=== PATIENT | female | born 1940 | race African-American/Black ===

== ENCOUNTER 2022-09-22 18:40 | Observation (INO) | payer OTHER ==
[2022-09-22 20:03] LABS: HEMATOCRIT 34.4 % (32.4-45.2); MCH 26.9 pg (25.7-33.7); MEAN PLT VOLUME 9.9 fl (7.5-11.1); PLATELET COUNT 208.1 10^3/uL (134-434); RBC 4.09 10^6/uL (3.60-5.2); RDW 18.6 % (11.6-15.6); WHITE BLOOD COUNT 5.2 10^3/uL (4.0-10.8)
[2022-09-22 20:43] LABS: ALBUMIN 3.4 g/dl (3.4-5.0); BILIRUBIN,TOTAL 0.4 mg/dl (0.2-1); CALCIUM 9.4 mg/dl (8.5-10)
[2022-09-22] MEDS ORDERED: ASPIRIN 81 MG CHEWABLE TABLETS PO ONE (20:44)
[2022-09-22] MEDS ORDERED: ASPIRIN 81 MG CHEWABLE TABLETS ONE (20:47)
[2022-09-22 21:23] LABS: PLATELET ESTIMATE ADEQUATE
[2022-09-22] MEDS ORDERED: DOCUSATE SODIUM 100 MG CAPSULE (FP) PO PRN (22:18)
[2022-09-22] MEDS ORDERED: ACETAMINOPHEN 325 MG TABLET (FP) PO PRN (22:18)
[2022-09-22] MEDS ORDERED: CEFTRIAXONE 1 GM in DEXTROSE 5%-WATER - 50 ML IVPB SCH (23:46)
[2022-09-23] MEDS ORDERED: FUROSEMIDE 40 MG/4 ML INJECTABLE VIAL IVPUSH ONE (06:00)
[2022-09-23] MEDS: INSULIN SLIDING SCALE (NOVOLOG) 1 VIAL SQ SCH ×4 (07:16→23:13)
[2022-09-23 08:29] LABS: INR 1.4 (0.83-1.09); PROTHROMBIN TIME (PATIENT) 16.1 SEC (9.7-13.0)
[2022-09-23 08:31] LABS: ACTIVATED PTT 33.4 SECONDS (25.2-36.5)
[2022-09-23 08:37] LABS: CALCIUM 9.3 mg/dl (8.5-10); PHOSPHOROUS 3.2 mg/dl (2.5-4.9)
[2022-09-23] MEDS ORDERED: REMDESIVIR 200 MG in SODIUM CHLORIDE 250 ML IVPB ONE (09:00)
[2022-09-23] MEDS: FAMOTIDINE 20 MG TABLET PO SCH (09:42)
[2022-09-23] MEDS: ASPIRIN 81 MG CHEWABLE TABLETS PO SCH (09:42)
[2022-09-23] MEDS: CARVEDILOL PHOSPHATE CR 40 MG CAPSULE (FP) PO SCH (09:42)
[2022-09-23] MEDS: CLOPIDOGREL BISULFATE 75 MG TABLET (FP) PO SCH (09:42)
[2022-09-23] MEDS: LOSARTAN POTASSIUM 50 MG TABLET PO SCH (09:42)
[2022-09-23] MEDS ORDERED: guaiFENesin/D-M SUGAR-FREE/ACLHOL-FREE (200 MG/10 MG) 5 ML PO PRN (10:11)
[2022-09-23 11:38] LABS: BASO % 0.4 % (0-2.0); EOS % 4.4 % (0-4.5); HEMATOCRIT 31.4 % (32.4-45.2); HEMOGLOBIN 10.2 GM/dL (10.7-15.3); MCH 26.9 pg (25.7-33.7); MCHC 32.5 g/dl (32.0-36.0); MEAN CELL VOLUME 82.9 fl (80-96); MEAN PLT VOLUME 9.5 fl (7.5-11.1); MONO % 8.7 % (3.8-10.2); NEUT % 46.5 % (42.8-82.8); PLATELET COUNT 172 10^3/uL (134-434); RBC 3.79 M/mm3 (3.60-5.2); RDW 18.3 % (11.6-15.6)
[2022-09-23] MEDS: ENOXAPARIN NA (PORCINE) 40 MG/0.4 ML DISP.SYRIN SQ SCH (12:31)
[2022-09-23 21:22] VITALS: BMI 24.2
[2022-09-23] MEDS: ATORVASTATIN CA 40 MG TABLET (FP) PO SCH (22:35)
[2022-09-24 08:52] LABS: BILIRUBIN,TOTAL 0.6 mg/dl (0.2-1); CALCIUM 9.1 mg/dl (8.5-10); CREATININE 0.9 mg/dl (0.55-1.3); MAGNESIUM 1.8 mg/dL (1.8-2.4); PHOSPHOROUS 3.2 mg/dl (2.5-4.9); TOT PROT 6.2 g/dl (6.4-8.2)
[2022-09-24] MEDS: INSULIN SLIDING SCALE (NOVOLOG) 1 VIAL SQ SCH ×3 (09:51→22:01)
[2022-09-24] MEDS: ENOXAPARIN NA (PORCINE) 40 MG/0.4 ML DISP.SYRIN SQ SCH (10:03)
[2022-09-24] MEDS: REMDESIVIR 100 MG in SODIUM CHLORIDE 250 ML IVPB SCH (10:05)
[2022-09-24] MEDS: CARVEDILOL PHOSPHATE CR 40 MG CAPSULE (FP) PO SCH (10:07)
[2022-09-24] MEDS: CLOPIDOGREL BISULFATE 75 MG TABLET (FP) PO SCH (10:08)
[2022-09-24] MEDS: LOSARTAN POTASSIUM 50 MG TABLET PO SCH (10:08)
[2022-09-24] MEDS: ASPIRIN 81 MG CHEWABLE TABLETS PO SCH (10:08)
[2022-09-24 11:48] LABS: BASO % 0.5 % (0-2.0); EOS % 3.6 % (0-4.5); HEMATOCRIT 33.2 % (32.4-45.2); LYMPH % 40.1 % (8-40); MCH 27.3 pg (25.7-33.7); MCHC 33.2 g/dl (32.0-36.0); MEAN CELL VOLUME 82.1 fl (80-96); MEAN PLT VOLUME 10.1 fl (7.5-11.1); MONO % 10.2 % (3.8-10.2); NEUT % 45.6 % (42.8-82.8); PLATELET COUNT 177 10^3/uL (134-434); RBC 4.05 M/mm3 (3.60-5.2); RDW 17.9 % (11.6-15.6); WHITE BLOOD COUNT 4.3 K/mm3 (4.0-10.0)
[2022-09-24] MEDS ORDERED: FUROSEMIDE 40 MG/4 ML INJECTABLE VIAL IVPUSH ONE (17:50)
[2022-09-24 20:26] LABS: ALBUMIN 3.4 g/dl (3.4-5.0); BILIRUBIN,DIRECT 0.1 mg/dL (0.0-0.2); BILIRUBIN,TOTAL 0.6 mg/dl (0.2-1); TOT PROT 6.8 g/dl (6.4-8.2)
[2022-09-24] MEDS: ATORVASTATIN CA 40 MG TABLET (FP) PO SCH (22:00)
[2022-09-25] MEDS: INSULIN SLIDING SCALE (NOVOLOG) 1 VIAL SQ SCH ×2 (06:46→11:05)
[2022-09-25] MEDS: FAMOTIDINE 20 MG TABLET PO SCH ×2 (07:00→10:57)
[2022-09-25 09:10] LABS: BILIRUBIN,TOTAL 0.7 mg/dl (0.2-1); MAGNESIUM 1.8 mg/dL (1.8-2.4); PHOSPHOROUS 3.5 mg/dl (2.5-4.9); TOT PROT 6.3 g/dl (6.4-8.2)
[2022-09-25 09:36] LABS: BASO % 0.5 % (0-2.0); EOS % 3.9 % (0-4.5); HEMATOCRIT 31.5 % (32.4-45.2); HEMOGLOBIN 10.6 GM/dL (10.7-15.3); MCH 27.5 pg (25.7-33.7); MCHC 33.8 g/dl (32.0-36.0); MEAN CELL VOLUME 81.5 fl (80-96); MEAN PLT VOLUME 9.2 fl (7.5-11.1); NEUT % 49.6 % (42.8-82.8); PLATELET COUNT 172 10^3/uL (134-434); RBC 3.86 M/mm3 (3.60-5.2); RDW 17.9 % (11.6-15.6); WHITE BLOOD COUNT 4.3 K/mm3 (4.0-10.0)
[2022-09-25] MEDS: CARVEDILOL PHOSPHATE CR 40 MG CAPSULE (FP) PO SCH (10:57)
[2022-09-25] MEDS: LOSARTAN POTASSIUM 50 MG TABLET PO SCH (10:57)
[2022-09-25] MEDS: ASPIRIN 81 MG CHEWABLE TABLETS PO SCH (10:57)
[2022-09-25] MEDS: CLOPIDOGREL BISULFATE 75 MG TABLET (FP) PO SCH (10:57)
[2022-09-25] MEDS: ENOXAPARIN NA (PORCINE) 40 MG/0.4 ML DISP.SYRIN SQ SCH (10:57)
[2022-09-25] MEDS: REMDESIVIR 100 MG in SODIUM CHLORIDE 250 ML IVPB SCH (10:58)
[2022-09-25 12:07] VITALS: TEMP 98.6
[2022-09-25 14:10] VITALS: BP 157/59; PULSE 66; RESP 19
== END 2022-09-25 14:33 | disposition home or self-care (01) ==
LOC: FER 18:40 → FM/S 21:55 → INTOOBSV 21:55
PROVIDERS: ADMIT Internal Medicine; ATTEND Internal Medicine
PROC: 3E023GC Introduction of Other Therapeutic Substance into Muscle, Percutaneous Approach (ICD-10-PCS; principal; 2022-09-22)
PROC: 3E033GC Introduction of Other Therapeutic Substance into Peripheral Vein, Percutaneous Approach (ICD-10-PCS; 2022-09-22)
PROC: 3E033GC Introduction of Other Therapeutic Substance into Peripheral Vein, Percutaneous Approach (ICD-10-PCS; 2022-09-22)
DX: I25.10 Atherosclerotic heart disease of native coronary artery without angina pectoris (principal); I11.0 Hypertensive heart disease with heart failure; I50.9 Heart failure, unspecified; E11.9 Type 2 diabetes mellitus without complications; Z95.1 Presence of aortocoronary bypass graft; Z95.5 Presence of coronary angioplasty implant and graft; R77.8 Other specified abnormalities of plasma proteins; R79.89 Other specified abnormal findings of blood chemistry; U07.1 COVID-19; Z88.8 Allergy status to other drugs, medicaments and biological substances
CPT/HCPCS: 0241U-QW; 36415; 71045-TC-FY; 80048; 80053; 80076; 82550; 82553; 82962; 83735; 83880; 84100; 84443; 84484; 85025; 85027; 85610; 85730; 93005; 93306-TC; 96365; 96366; 96372; 96375; 96376; 97116-GP; 97162-GP; 99285-25; C9399; G0378

== ENCOUNTER 2022-10-10 14:58 | Inpatient (IN) | payer OTHER ==
[2022-10-10 16:54] LABS: ALBUMIN 3.1 g/dl (3.4-5.0); BILIRUBIN,TOTAL 1.2 mg/dl (0.2-1); CALCIUM 9.5 mg/dl (8.5-10); TOT PROT 6.6 g/dl (6.4-8.2)
[2022-10-10 17:47] LABS: HEMATOCRIT 32.2 % (32.4-45.2); HEMOGLOBIN 10.6 GM/dL (10.7-15.3); MCH 26.6 pg (25.7-33.7); MCHC 32.9 g/dl (32.0-36.0); MEAN CELL VOLUME 80.6 fl (80-96); PLATELET COUNT 148 10^3/uL (134-434); RBC 3.99 M/mm3 (3.60-5.2); WHITE BLOOD COUNT 5.7 K/mm3 (4.0-10.0)
[2022-10-11] MEDS ORDERED: FUROSEMIDE 40 MG/4 ML INJECTABLE VIAL IVPUSH ONE (05:04)
[2022-10-11] MEDS: ASPIRIN 81 MG CHEWABLE TABLETS PO SCH (09:59)
[2022-10-11] MEDS: CLOPIDOGREL BISULFATE 75 MG TABLET (FP) PO SCH (09:59)
[2022-10-11] MEDS: ENOXAPARIN NA (PORCINE) 40 MG/0.4 ML DISP.SYRIN SQ SCH (09:59)
[2022-10-11] MEDS ORDERED: CARVEDILOL PHOSPHATE CR 40 MG CAPSULE (FP) PO SCH (10:00)
[2022-10-11] MEDS ORDERED: LOSARTAN POTASSIUM 50 MG TABLET PO SCH (10:00)
[2022-10-11] MEDS ORDERED: FAMOTIDINE 20 MG TABLET PO SCH (10:00)
[2022-10-11 10:40] LABS: BASO % 0.3 % (0-2.0); EOS % 0.7 % (0-4.5); HEMATOCRIT 34.7 % (32.4-45.2); HEMOGLOBIN 11.9 GM/dL (10.7-15.3); LYMPH % 22.7 % (8-40); MCH 27.6 pg (25.7-33.7); MCHC 34.2 g/dl (32.0-36.0); MEAN CELL VOLUME 80.6 fl (80-96); MONO % 6.6 % (3.8-10.2); NEUT % 69.7 % (42.8-82.8); PLATELET COUNT 150 10^3/uL (134-434); RDW 18.1 % (11.6-15.6); WHITE BLOOD COUNT 5.7 K/mm3 (4.0-10.0)
[2022-10-11 10:59] LABS: BLOOD UREA NITROGEN 22.3 mg/dL (7-18); MAGNESIUM 1.8 mg/dL (1.8-2.4)
[2022-10-11 11:00] LABS: ALBUMIN 3.1 g/dl (3.4-5.0); CALCIUM 9.6 mg/dL (8.5-10.1)
[2022-10-11 11:02] LABS: PHOSPHOROUS 3.9 mg/dL (2.5-4.9)
[2022-10-11 11:03] LABS: CREATININE 1.3 mg/dL (0.55-1.3)
[2022-10-11 11:04] LABS: TOT PROT 7.1 g/dl (6.4-8.2)
[2022-10-11] MEDS: INSULIN SLIDING SCALE (NOVOLOG) 1 VIAL SQ SCH ×3 (11:13→22:04)
[2022-10-11 11:15] LABS: BILIRUBIN,TOTAL 1.4 mg/dL (0.2-1)
[2022-10-11 13:11] LABS: N-TERMINAL BNP 15952.3 pg/ml (5-450)
[2022-10-11] MEDS ORDERED: FUROSEMIDE 40 MG/4 ML INJECTABLE VIAL IVPUSH SCH (14:00)
[2022-10-11] MEDS ORDERED: CARVEDILOL 25 MG TABLET (FP) PO ONE (16:34)
[2022-10-11] MEDS ORDERED: SODIUM CHLORIDE 1,000 ML IV SCH (17:00)
[2022-10-11 20:28] LABS: BASO % 0.3 % (0-2.0); EOS % 3.5 % (0-4.5); HEMATOCRIT 32.3 % (32.4-45.2); HEMOGLOBIN 10.9 GM/dL (10.7-15.3); LYMPH % 27.1 % (8-40); MCH 26.9 pg (25.7-33.7); MCHC 33.6 g/dl (32.0-36.0); MEAN CELL VOLUME 79.9 fl (80-96); MEAN PLT VOLUME 9.6 fl (7.5-11.1); MONO % 6.4 % (3.8-10.2); NEUT % 62.7 % (42.8-82.8); PLATELET COUNT 150 10^3/uL (134-434); RBC 4.04 M/mm3 (3.60-5.2); RDW 18.2 % (11.6-15.6); WHITE BLOOD COUNT 5.7 K/mm3 (4.0-10.0)
[2022-10-11 20:36] LABS: INR 1.45 (0.83-1.09); PROTHROMBIN TIME (PATIENT) 16.8 SEC (9.7-13.0)
[2022-10-11 20:39] LABS: ACTIVATED PTT 34.1 SECONDS (25.2-36.5)
[2022-10-11] MEDS: ATORVASTATIN CA 40 MG TABLET (FP) PO SCH (21:49)
[2022-10-11] MEDS: CARVEDILOL 25 MG TABLET (FP) PO SCH (21:51)
[2022-10-11] MEDS ORDERED: INSULIN (LEVEMIR) 100 UNITS/ML UNITS SQ SCH (22:00)
[2022-10-11] MEDS ORDERED: INSULIN (NOVOLOG) ASPART 100 UNITS/ML 10ML VIAL ONE (22:03)
[2022-10-12] MEDS ORDERED: DEXTROSE 50%-WATER 25 GM/50 ML DISP.SYRIN ONE (04:03)
[2022-10-12] MEDS ORDERED: DEXTROSE 50%-WATER 25 GM/50 ML DISP.SYRIN IVPUSH ONE (04:15)
[2022-10-12] MEDS: INSULIN SLIDING SCALE (NOVOLOG) 1 VIAL SQ SCH ×4 (06:23→21:26)
[2022-10-12 07:22] LABS: BASO % 0.2 % (0-2.0); EOS % 1.8 % (0-4.5); HEMATOCRIT 33.7 % (32.4-45.2); HEMOGLOBIN 11.3 GM/dL (10.7-15.3); LYMPH % 18.4 % (8-40); MCHC 33.4 g/dl (32.0-36.0); MEAN CELL VOLUME 80.8 fl (80-96); MEAN PLT VOLUME 10.6 fl (7.5-11.1); MONO % 7.1 % (3.8-10.2); NEUT % 72.5 % (42.8-82.8); PLATELET COUNT 147 10^3/uL (134-434); RBC 4.18 M/mm3 (3.60-5.2); RDW 17.8 % (11.6-15.6); WHITE BLOOD COUNT 5.1 K/mm3 (4.0-10.0)
[2022-10-12 07:47] LABS: CALCIUM 9.6 mg/dL (8.5-10.1)
[2022-10-12 07:48] LABS: ALBUMIN 2.7 g/dl (3.4-5.0); BLOOD UREA NITROGEN 25.6 mg/dL (7-18)
[2022-10-12 07:51] LABS: CREATININE 1.2 mg/dL (0.55-1.3)
[2022-10-12 07:53] LABS: BILIRUBIN,TOTAL 0.9 mg/dL (0.2-1); TOT PROT 6.4 g/dl (6.4-8.2)
[2022-10-12] MEDS ORDERED: CARVEDILOL PHOSPHATE CR 40 MG CAPSULE (FP) PO SCH (10:00)
[2022-10-12] MEDS ORDERED: ASCORBIC ACID 500 MG TABLET (FP) PO SCH (10:00)
[2022-10-12] MEDS: LOSARTAN POTASSIUM 50 MG TABLET PO SCH (10:56)
[2022-10-12] MEDS: ASPIRIN 81 MG CHEWABLE TABLETS PO SCH (10:57)
[2022-10-12] MEDS: CLOPIDOGREL BISULFATE 75 MG TABLET (FP) PO SCH (10:57)
[2022-10-12] MEDS: CARVEDILOL 25 MG TABLET (FP) PO SCH ×2 (10:57→21:19)
[2022-10-12] MEDS: FUROSEMIDE 40 MG/4 ML INJECTABLE VIAL IVPUSH SCH (10:57)
[2022-10-12] MEDS: ENOXAPARIN NA (PORCINE) 40 MG/0.4 ML DISP.SYRIN SQ SCH (10:57)
[2022-10-12] MEDS: PANTOPRAZOLE 40 MG TABLET PO SCH (10:57)
[2022-10-12] MEDS ORDERED: INSULIN (NOVOLOG) ASPART 100 UNITS/ML 10ML VIAL ONE (17:11)
[2022-10-12] MEDS: ATORVASTATIN CA 40 MG TABLET (FP) PO SCH (21:19)
[2022-10-13] MEDS: INSULIN SLIDING SCALE (NOVOLOG) 1 VIAL SQ SCH ×4 (06:56→22:18)
[2022-10-13 07:59] LABS: HEMATOCRIT 32.4 % (32.4-45.2); HEMOGLOBIN 10.7 GM/dL (10.7-15.3); MCH 26.9 pg (25.7-33.7); MCHC 33.1 g/dl (32.0-36.0); MEAN CELL VOLUME 81.2 fl (80-96); MEAN PLT VOLUME 10.9 fl (7.5-11.1); PLATELET COUNT 151 10^3/uL (134-434); RBC 3.99 M/mm3 (3.60-5.2); RDW 17.9 % (11.6-15.6); WHITE BLOOD COUNT 5.3 K/mm3 (4.0-10.0)
[2022-10-13 08:54] LABS: ALBUMIN 2.6 g/dl (3.4-5.0); BLOOD UREA NITROGEN 26.8 mg/dL (7-18); CALCIUM 9.4 mg/dL (8.5-10.1)
[2022-10-13 08:55] LABS: MAGNESIUM 1.9 mg/dL (1.8-2.4)
[2022-10-13 08:57] LABS: PHOSPHOROUS 3.2 mg/dL (2.5-4.9)
[2022-10-13 08:58] LABS: CREATININE 1.1 mg/dL (0.55-1.3)
[2022-10-13 08:59] LABS: BILIRUBIN,TOTAL 0.8 mg/dL (0.2-1); TOT PROT 6.3 g/dl (6.4-8.2)
[2022-10-13 09:03] LABS: CHOLESTEROL 85 mg/dL (50-200)
[2022-10-13 09:04] LABS: LDL CHOLESTEROL (ONLY SJRH) 48 mg/dL (5-100)
[2022-10-13 09:07] LABS: HDL CHOLESTEROL 32 mg/dL (40-60)
[2022-10-13] MEDS: ENOXAPARIN NA (PORCINE) 40 MG/0.4 ML DISP.SYRIN SQ SCH (09:55)
[2022-10-13] MEDS: CARVEDILOL 25 MG TABLET (FP) PO SCH ×2 (09:55→22:18)
[2022-10-13] MEDS: CLOPIDOGREL BISULFATE 75 MG TABLET (FP) PO SCH (09:55)
[2022-10-13] MEDS: ASPIRIN 81 MG CHEWABLE TABLETS PO SCH (09:55)
[2022-10-13] MEDS: FUROSEMIDE 40 MG/4 ML INJECTABLE VIAL IVPUSH SCH (09:55)
[2022-10-13] MEDS: LOSARTAN POTASSIUM 50 MG TABLET PO SCH (09:55)
[2022-10-13] MEDS: PANTOPRAZOLE 40 MG TABLET PO SCH (09:55)
[2022-10-13] MEDS ORDERED: INSULIN (NOVOLOG) ASPART 100 UNITS/ML 10ML VIAL ONE ×3 (13:01→22:15)
[2022-10-13] MEDS: ATORVASTATIN CA 40 MG TABLET (FP) PO SCH (22:18)
[2022-10-14] MEDS: INSULIN SLIDING SCALE (NOVOLOG) 1 VIAL SQ SCH ×4 (06:45→21:26)
[2022-10-14 08:26] LABS: HEMATOCRIT 31.9 % (32.4-45.2); HEMOGLOBIN 10.7 GM/dL (10.7-15.3); MCH 27.2 pg (25.7-33.7); MCHC 33.5 g/dl (32.0-36.0); MEAN CELL VOLUME 81.2 fl (80-96); MEAN PLT VOLUME 10.6 fl (7.5-11.1); PLATELET COUNT 160 10^3/uL (134-434); RBC 3.92 M/mm3 (3.60-5.2); RDW 17.6 % (11.6-15.6); WHITE BLOOD COUNT 4.6 K/mm3 (4.0-10.0)
[2022-10-14 08:57] LABS: CALCIUM 9.1 mg/dL (8.5-10.1)
[2022-10-14 08:58] LABS: ALBUMIN 2.5 g/dl (3.4-5.0)
[2022-10-14 09:00] LABS: CREATININE 0.9 mg/dL (0.55-1.3); PHOSPHOROUS 2.8 mg/dL (2.5-4.9)
[2022-10-14 09:02] LABS: TOT PROT 5.8 g/dl (6.4-8.2)
[2022-10-14 09:03] LABS: BILIRUBIN,TOTAL 0.8 mg/dL (0.2-1)
[2022-10-14] MEDS: ENOXAPARIN NA (PORCINE) 40 MG/0.4 ML DISP.SYRIN SQ SCH (09:51)
[2022-10-14] MEDS: CARVEDILOL 25 MG TABLET (FP) PO SCH ×2 (09:52→21:26)
[2022-10-14] MEDS: ASPIRIN 81 MG CHEWABLE TABLETS PO SCH (09:52)
[2022-10-14] MEDS: CLOPIDOGREL BISULFATE 75 MG TABLET (FP) PO SCH (09:52)
[2022-10-14] MEDS: PANTOPRAZOLE 40 MG TABLET PO SCH (09:52)
[2022-10-14] MEDS: LOSARTAN POTASSIUM 50 MG TABLET PO SCH (09:52)
[2022-10-14] MEDS ORDERED: FUROSEMIDE 40 MG TABLET (FP) PO SCH (10:00)
[2022-10-14] MEDS ORDERED: INSULIN (NOVOLOG) ASPART 100 UNITS/ML 10ML VIAL ONE ×3 (11:39→20:56)
[2022-10-14] MEDS: ATORVASTATIN CA 40 MG TABLET (FP) PO SCH (21:25)
[2022-10-15] MEDS: INSULIN SLIDING SCALE (NOVOLOG) 1 VIAL SQ SCH ×4 (06:27→22:38)
[2022-10-15] MEDS: ASPIRIN 81 MG CHEWABLE TABLETS PO SCH (09:44)
[2022-10-15] MEDS: CLOPIDOGREL BISULFATE 75 MG TABLET (FP) PO SCH (09:44)
[2022-10-15] MEDS: PANTOPRAZOLE 40 MG TABLET PO SCH (09:44)
[2022-10-15] MEDS: ENOXAPARIN NA (PORCINE) 40 MG/0.4 ML DISP.SYRIN SQ SCH ×2 (09:45→09:56)
[2022-10-15] MEDS: LOSARTAN POTASSIUM 50 MG TABLET PO SCH (09:45)
[2022-10-15] MEDS: CARVEDILOL 25 MG TABLET (FP) PO SCH ×2 (09:45→21:02)
[2022-10-15] MEDS: FUROSEMIDE 40 MG TABLET (FP) PO SCH (09:48)
[2022-10-15] MEDS: ATORVASTATIN CA 20 MG TABLET (FP) PO SCH (21:02)
[2022-10-16] MEDS: INSULIN SLIDING SCALE (NOVOLOG) 1 VIAL SQ SCH ×4 (06:14→21:07)
[2022-10-16] MEDS: CLOPIDOGREL BISULFATE 75 MG TABLET (FP) PO SCH (09:30)
[2022-10-16] MEDS: CARVEDILOL 25 MG TABLET (FP) PO SCH ×2 (09:30→21:06)
[2022-10-16] MEDS: LOSARTAN POTASSIUM 50 MG TABLET PO SCH (09:30)
[2022-10-16] MEDS: PANTOPRAZOLE 40 MG TABLET PO SCH (09:30)
[2022-10-16] MEDS: ENOXAPARIN NA (PORCINE) 40 MG/0.4 ML DISP.SYRIN SQ SCH (09:31)
[2022-10-16] MEDS: FUROSEMIDE 40 MG TABLET (FP) PO SCH (09:31)
[2022-10-16] MEDS: ASPIRIN 81 MG CHEWABLE TABLETS PO SCH (10:43)
[2022-10-16] MEDS: SACUBITRIL/VALSARTAN 24 MG-26 MG TABLET PO SCH (21:06)
[2022-10-16] MEDS: ATORVASTATIN CA 20 MG TABLET (FP) PO SCH (21:06)
[2022-10-17] MEDS: INSULIN SLIDING SCALE (NOVOLOG) 1 VIAL SQ SCH ×4 (06:04→22:33)
[2022-10-17 09:13] LABS: HEMATOCRIT 33.2 % (32.4-45.2); HEMOGLOBIN 11.1 GM/dL (10.7-15.3); MCH 26.8 pg (25.7-33.7); MCHC 33.5 g/dl (32.0-36.0); MEAN CELL VOLUME 80.1 fl (80-96); MEAN PLT VOLUME 9.7 fl (7.5-11.1); PLATELET COUNT 192 10^3/uL (134-434); RBC 4.15 M/mm3 (3.60-5.2); RDW 17.3 % (11.6-15.6); WHITE BLOOD COUNT 4.1 K/mm3 (4.0-10.0)
[2022-10-17 09:17] LABS: INR 1.11 (0.83-1.09); PROTHROMBIN TIME (PATIENT) 12.9 SEC (9.7-13.0)
[2022-10-17 09:18] LABS: ACTIVATED PTT 27.7 SECONDS (25.2-36.5)
[2022-10-17] MEDS: PANTOPRAZOLE 40 MG TABLET PO SCH (09:36)
[2022-10-17] MEDS: ASPIRIN 81 MG CHEWABLE TABLETS PO SCH (09:36)
[2022-10-17] MEDS: FUROSEMIDE 40 MG TABLET (FP) PO SCH (09:36)
[2022-10-17] MEDS: ENOXAPARIN NA (PORCINE) 40 MG/0.4 ML DISP.SYRIN SQ SCH (09:37)
[2022-10-17] MEDS: CARVEDILOL 25 MG TABLET (FP) PO SCH ×2 (09:37→22:28)
[2022-10-17] MEDS: SACUBITRIL/VALSARTAN 24 MG-26 MG TABLET PO SCH ×2 (09:37→22:28)
[2022-10-17] MEDS: CLOPIDOGREL BISULFATE 75 MG TABLET (FP) PO SCH (09:37)
[2022-10-17 09:50] LABS: CALCIUM 9.2 mg/dL (8.5-10.1)
[2022-10-17 09:51] LABS: ALBUMIN 2.4 g/dl (3.4-5.0); BLOOD UREA NITROGEN 14.8 mg/dL (7-18)
[2022-10-17 09:53] LABS: PHOSPHOROUS 1.8 mg/dL (2.5-4.9)
[2022-10-17 09:54] LABS: CREATININE 0.9 mg/dL (0.55-1.3)
[2022-10-17 09:55] LABS: BILIRUBIN,TOTAL 0.6 mg/dL (0.2-1); TOT PROT 5.7 g/dl (6.4-8.2)
[2022-10-17] MEDS ORDERED: POTASSIUM CHLORIDE ORAL LIQUID 20 MEQ/15 ML PO ONE (10:29)
[2022-10-17] MEDS: ATORVASTATIN CA 20 MG TABLET (FP) PO SCH (22:28)
[2022-10-17 23:19] VITALS: BMI 20.9
[2022-10-18] MEDS: INSULIN SLIDING SCALE (NOVOLOG) 1 VIAL SQ SCH ×5 (06:18→21:36)
[2022-10-18] MEDS: SACUBITRIL/VALSARTAN 24 MG-26 MG TABLET PO SCH ×2 (10:24→21:33)
[2022-10-18] MEDS: CARVEDILOL 25 MG TABLET (FP) PO SCH ×2 (10:24→21:32)
[2022-10-18] MEDS: CLOPIDOGREL BISULFATE 75 MG TABLET (FP) PO SCH (10:24)
[2022-10-18] MEDS: ASPIRIN 81 MG CHEWABLE TABLETS PO SCH (10:24)
[2022-10-18] MEDS: ENOXAPARIN NA (PORCINE) 40 MG/0.4 ML DISP.SYRIN SQ SCH (10:24)
[2022-10-18] MEDS: FUROSEMIDE 40 MG TABLET (FP) PO SCH (10:24)
[2022-10-18] MEDS: PANTOPRAZOLE 40 MG TABLET PO SCH (10:24)
[2022-10-18 13:17] LABS: CALCIUM 9.4 mg/dL (8.5-10.1)
[2022-10-18 13:18] LABS: BLOOD UREA NITROGEN 14.6 mg/dL (7-18)
[2022-10-18] MEDS ORDERED: SODIUM CHLORIDE 250 ML IV STA (15:58)
[2022-10-18] MEDS: ATORVASTATIN CA 20 MG TABLET (FP) PO SCH (21:32)
[2022-10-18] MEDS ORDERED: INSULIN (NOVOLOG) ASPART 100 UNITS/ML 10ML VIAL ONE (21:36)
[2022-10-18 23:24] LABS: EPI CELLS >36 /uL (0-25.1); HYALINE CASTS 1 /uL (0-3.1); URINE APPEARANCE CLOUDY; URINE BACTERIA 2074 /uL (0-1359); URINE BILIRUBIN NEGATIVE (NEGATIVE); URINE COLOR YELLOW; URINE GLUCOSE (UA) 1+ (NEGATIVE); URINE KETONE NEGATIVE (NEGATIVE); URINE LEUK ESTERASE 3+ (NEGATIVE); URINE NITRITE NEGATIVE (NEGATIVE); URINE PROTEIN NEGATIVE (NEGATIVE); URINE RBC 9 /uL (0-23.9); URINE UROBILINOGEN 0.2 mg/dL (0.2-1.0); URINE WBC 655 /uL (0-25.8)
[2022-10-19] MEDS ORDERED: INSULIN (NOVOLOG) ASPART 100 UNITS/ML 10ML VIAL ONE ×3 (06:28→17:21)
[2022-10-19] MEDS: INSULIN SLIDING SCALE (NOVOLOG) 1 VIAL SQ SCH ×4 (06:31→22:00)
[2022-10-19 08:47] LABS: BASO % 0.8 % (0-2.0); EOS % 4.9 % (0-4.5); HEMATOCRIT 37.5 % (32.4-45.2); HEMOGLOBIN 12.7 GM/dL (10.7-15.3); LYMPH % 46.7 % (8-40); MCHC 33.8 g/dl (32.0-36.0); MEAN CELL VOLUME 79.9 fl (80-96); MEAN PLT VOLUME 9.8 fl (7.5-11.1); MONO % 9.6 % (3.8-10.2); PLATELET COUNT 253 10^3/uL (134-434); RDW 17.9 % (11.6-15.6); WHITE BLOOD COUNT 3.6 K/mm3 (4.0-10.0)
[2022-10-19] MEDS: SACUBITRIL/VALSARTAN 24 MG-26 MG TABLET PO SCH ×2 (09:05→22:33)
[2022-10-19] MEDS: ASPIRIN 81 MG CHEWABLE TABLETS PO SCH (09:05)
[2022-10-19] MEDS: ENOXAPARIN NA (PORCINE) 40 MG/0.4 ML DISP.SYRIN SQ SCH (09:05)
[2022-10-19] MEDS: PANTOPRAZOLE 40 MG TABLET PO SCH (09:06)
[2022-10-19] MEDS: CLOPIDOGREL BISULFATE 75 MG TABLET (FP) PO SCH (09:06)
[2022-10-19 09:08] LABS: CALCIUM 9.4 mg/dL (8.5-10.1)
[2022-10-19 09:12] LABS: PHOSPHOROUS 2.6 mg/dL (2.5-4.9)
[2022-10-19 09:14] LABS: BILIRUBIN,TOTAL 0.7 mg/dL (0.2-1)
[2022-10-19 09:38] LABS: ALBUMIN 2.9 g/dl (3.4-5.0)
[2022-10-19] MEDS: FUROSEMIDE 40 MG TABLET (FP) PO SCH (10:00)
[2022-10-19] MEDS: CARVEDILOL 25 MG TABLET (FP) PO SCH ×2 (10:52→22:33)
[2022-10-19] MEDS ORDERED: SODIUM CHLORIDE 250 ML IV STA (17:03)
[2022-10-19] MEDS: ATORVASTATIN CA 20 MG TABLET (FP) PO SCH (22:34)
[2022-10-19 23:43] VITALS: RESP 20
[2022-10-20] MEDS ORDERED: INSULIN (NOVOLOG) ASPART 100 UNITS/ML 10ML VIAL ONE ×3 (06:37→11:09)
[2022-10-20] MEDS: INSULIN SLIDING SCALE (NOVOLOG) 1 VIAL SQ SCH ×3 (06:38→17:42)
[2022-10-20] MEDS: CARVEDILOL 25 MG TABLET (FP) PO SCH (09:25)
[2022-10-20] MEDS: ASPIRIN 81 MG CHEWABLE TABLETS PO SCH (09:25)
[2022-10-20] MEDS: PANTOPRAZOLE 40 MG TABLET PO SCH (09:26)
[2022-10-20] MEDS: FUROSEMIDE 40 MG TABLET (FP) PO SCH (09:26)
[2022-10-20] MEDS: CLOPIDOGREL BISULFATE 75 MG TABLET (FP) PO SCH (09:26)
[2022-10-20] MEDS: ENOXAPARIN NA (PORCINE) 40 MG/0.4 ML DISP.SYRIN SQ SCH (09:27)
[2022-10-20] MEDS: SACUBITRIL/VALSARTAN 24 MG-26 MG TABLET PO SCH (09:28)
[2022-10-20 14:44] VITALS: BP 109/50; TEMP 98.2
[2022-10-20 15:48] VITALS: PULSE 78
== END 2022-10-20 17:50 | disposition home or self-care (01) | DRG 291 ==
LOC: FER 14:58 → J4W 10-11 02:50 → J5S 10-14 23:30 → J4W 10-18 19:00
PROVIDERS: ADMIT Internal Medicine; ATTEND Internal Medicine
DX: I11.0 Hypertensive heart disease with heart failure (principal); I50.23 Acute on chronic systolic (congestive) heart failure; U07.1 COVID-19; E87.1 Hypo-osmolality and hyponatremia; N17.9 Acute kidney failure, unspecified; R47.01 Aphasia; G45.9 Transient cerebral ischemic attack, unspecified; I25.10 Atherosclerotic heart disease of native coronary artery without angina pectoris; I10 Essential (primary) hypertension; I25.2 Old myocardial infarction; Z95.1 Presence of aortocoronary bypass graft; E11.9 Type 2 diabetes mellitus without complications; D64.9 Anemia, unspecified; Z86.16 Personal history of COVID-19; E11.65 Type 2 diabetes mellitus with hyperglycemia; R74.01 Elevation of levels of liver transaminase levels; E11.51 Type 2 diabetes mellitus with diabetic peripheral angiopathy without gangrene; R47.81 Slurred speech; R47.1 Dysarthria and anarthria; I42.8 Other cardiomyopathies
CPT/HCPCS: 0241U-QW; 36415; 70450-TC; 70496-TC; 70498-TC; 70551-TC; 71045-TC-FY; 71046-TC-FY; 80048; 80053; 80061; 81003; 82550; 82553; 82607; 82728; 82746; 82962; 83036; 83540; 83550; 83735; 83880; 84100; 84439; 84443; 84484; 85025; 85027; 85045; 85610; 85730; 93005; 93010; 93306-TC; 94010; 94761; 97116-GP; 97162-GP; 99282-25; 99285-25; C9803-CS; U0003; U0005

== ENCOUNTER 2023-07-26 18:53 | Inpatient (IN) | payer OTHER ==
[2023-07-26 21:36] LABS: BASO % 0.7 % (0-2.0); EOS % 3.3 % (0-4.5); HEMATOCRIT 35.7 % (32.4-45.2); HEMOGLOBIN 11.3 GM/dL (10.7-15.3); LYMPH % 34.2 % (8-40); MCHC 31.7 g/dl (32.0-36.0); MEAN CELL VOLUME 85.2 fl (80-96); MEAN PLT VOLUME 9.4 fl (7.5-11.1); MONO % 8.1 % (3.8-10.2); NEUT % 53.7 % (42.8-82.8); PLATELET COUNT 151 10^3/uL (134-434); RBC 4.19 M/mm3 (3.60-5.2); RDW 17.8 % (11.6-15.6); WHITE BLOOD COUNT 4.1 K/mm3 (4.0-10.0)
[2023-07-26 21:48] LABS: INR 1.1 (0.83-1.09); PROTHROMBIN TIME (PATIENT) 12.8 SEC (9.7-13.0)
[2023-07-26 22:01] LABS: POTASSIUM 4.7 mmol/L (3.5-5.1)
[2023-07-26 22:03] LABS: CALCIUM 9.6 mg/dL (8.5-10.1)
[2023-07-26 22:04] LABS: BLOOD UREA NITROGEN 18.7 mg/dL (7-18)
[2023-07-26 22:07] LABS: CREATININE 1.1 mg/dL (0.55-1.3)
[2023-07-26 22:09] LABS: BILIRUBIN,TOTAL 0.6 mg/dL (0.2-1); TOT PROT 7.1 g/dl (6.4-8.2)
[2023-07-26 22:12] LABS: N-TERMINAL BNP 17846.2 pg/ml (5-450)
[2023-07-27 00:34] LABS: EPI CELLS 26 /uL (0-25.1); HYALINE CASTS 1 /uL (0-3.1); URINE APPEARANCE CLOUDY; URINE BACTERIA 7842 /uL (0-1359); URINE BILIRUBIN NEGATIVE (NEGATIVE); URINE COLOR YELLOW; URINE GLUCOSE (UA) 3+ (NEGATIVE); URINE KETONE NEGATIVE (NEGATIVE); URINE LEUK ESTERASE TRACE (NEGATIVE); URINE NITRITE NEGATIVE (NEGATIVE); URINE PROTEIN 1+ (NEGATIVE); URINE RBC 16 /uL (0-23.9); URINE UROBILINOGEN 0.2 mg/dL (0.2-1.0); URINE WBC 145 /uL (0-25.8)
[2023-07-27 02:46] VITALS: BMI 22.3
[2023-07-27] MEDS: INSULIN (LEVEMIR) 100 UNITS/ML UNITS SQ SCH (06:28)
[2023-07-27] MEDS: INSULIN ASPART SLIDING SCALE (NOVOLOG) 1 VIAL SQ SCH ×3 (06:29→17:06)
[2023-07-27 08:13] LABS: HEMATOCRIT 33.2 % (32.4-45.2); HEMOGLOBIN 10.6 GM/dL (10.7-15.3); MCH 27.1 pg (25.7-33.7); MCHC 31.9 g/dl (32.0-36.0); MEAN CELL VOLUME 85.2 fl (80-96); MEAN PLT VOLUME 9.8 fl (7.5-11.1); PLATELET COUNT 143 10^3/uL (134-434); RBC 3.89 M/mm3 (3.60-5.2); RDW 17.7 % (11.6-15.6); WHITE BLOOD COUNT 4.2 K/mm3 (4.0-10.0)
[2023-07-27 08:23] LABS: POTASSIUM 4.5 mmol/L (3.5-5.1)
[2023-07-27 08:31] LABS: ALBUMIN 2.7 g/dl (3.4-5.0); CALCIUM 9.3 mg/dL (8.5-10.1); PHOSPHOROUS 2.4 mg/dL (2.5-4.9)
[2023-07-27 08:32] LABS: BLOOD UREA NITROGEN 16.8 mg/dL (7-18); CREATININE 0.9 mg/dL (0.55-1.3)
[2023-07-27 08:33] LABS: BILIRUBIN,TOTAL 0.7 mg/dL (0.2-1); MAGNESIUM 2.4 mg/dL (1.8-2.4); TOT PROT 6.3 g/dl (6.4-8.2)
[2023-07-27] MEDS ORDERED: LOSARTAN POTASSIUM 50 MG TABLET PO SCH (10:00)
[2023-07-27] MEDS: CLOPIDOGREL BISULFATE 75 MG TABLET (FP) PO SCH (10:19)
[2023-07-27] MEDS: ENOXAPARIN NA (PORCINE) 40 MG/0.4 ML DISP.SYRIN SQ SCH (10:20)
[2023-07-27] MEDS: FAMOTIDINE 20 MG TABLET PO SCH ×2 (10:20→21:31)
[2023-07-27] MEDS ORDERED: FUROSEMIDE 40 MG TABLET (FP) PO SCH (12:15)
[2023-07-27] MEDS: EMPAGLIFLOZIN (JARDIANCE) 10 MG TABLET PO SCH (13:19)
[2023-07-27] MEDS: FUROSEMIDE 40 MG/4 ML INJECTABLE VIAL IVPUSH SCH (17:51)
[2023-07-27] MEDS: ATORVASTATIN CA 10 MG TABLET (FP) PO SCH (21:31)
[2023-07-28] MEDS: INSULIN ASPART SLIDING SCALE (NOVOLOG) 1 VIAL SQ SCH ×3 (06:32→17:16)
[2023-07-28] MEDS: INSULIN (LEVEMIR) 100 UNITS/ML UNITS SQ SCH (06:34)
[2023-07-28 08:17] LABS: BASO % 0.4 % (0-2.0); EOS % 3.1 % (0-4.5); HEMATOCRIT 35.1 % (32.4-45.2); HEMOGLOBIN 11.2 GM/dL (10.7-15.3); LYMPH % 39.1 % (8-40); MCHC 31.8 g/dl (32.0-36.0); MEAN CELL VOLUME 84.9 fl (80-96); MEAN PLT VOLUME 9.9 fl (7.5-11.1); MONO % 9.7 % (3.8-10.2); NEUT % 47.7 % (42.8-82.8); PLATELET COUNT 146 10^3/uL (134-434); RBC 4.13 M/mm3 (3.60-5.2); RDW 17.6 % (11.6-15.6); WHITE BLOOD COUNT 4.3 K/mm3 (4.0-10.0)
[2023-07-28 08:34] LABS: BLOOD UREA NITROGEN 17.4 mg/dL (7-18); CALCIUM 9.2 mg/dL (8.5-10.1); MAGNESIUM 2.4 mg/dL (1.8-2.4)
[2023-07-28 08:35] LABS: ALBUMIN 2.6 g/dl (3.4-5.0)
[2023-07-28 08:38] LABS: CREATININE 0.9 mg/dL (0.55-1.3); PHOSPHOROUS 2.7 mg/dL (2.5-4.9)
[2023-07-28 08:39] LABS: BILIRUBIN,TOTAL 0.7 mg/dL (0.2-1); TOT PROT 6.2 g/dl (6.4-8.2)
[2023-07-28] MEDS: CEFTRIAXONE 1 GM in DEXTROSE 5%-WATER - 50 ML IVPB SCH ×2 (09:35→09:36)
[2023-07-28] MEDS: ENOXAPARIN NA (PORCINE) 40 MG/0.4 ML DISP.SYRIN SQ SCH (09:35)
[2023-07-28] MEDS: EMPAGLIFLOZIN (JARDIANCE) 10 MG TABLET PO SCH (09:36)
[2023-07-28] MEDS: FAMOTIDINE 20 MG TABLET PO SCH ×2 (09:36→21:38)
[2023-07-28] MEDS: CLOPIDOGREL BISULFATE 75 MG TABLET (FP) PO SCH (09:36)
[2023-07-28] MEDS: FUROSEMIDE 40 MG/4 ML INJECTABLE VIAL IVPUSH SCH (09:37)
[2023-07-28] MEDS: SACUBITRIL/VALSARTAN 97 MG-103 MG TABLET PO SCH (21:38)
[2023-07-28] MEDS: ATORVASTATIN CA 10 MG TABLET (FP) PO SCH (21:38)
[2023-07-29] MEDS: INSULIN ASPART SLIDING SCALE (NOVOLOG) 1 VIAL SQ SCH ×3 (06:38→16:59)
[2023-07-29] MEDS: INSULIN (LEVEMIR) 100 UNITS/ML UNITS SQ SCH (06:39)
[2023-07-29 07:29] LABS: HEMOGLOBIN 11.1 GM/dL (10.7-15.3); MCH 27.1 pg (25.7-33.7); MCHC 31.7 g/dl (32.0-36.0); MEAN CELL VOLUME 85.3 fl (80-96); MEAN PLT VOLUME 10.7 fl (7.5-11.1); PLATELET COUNT 163 10^3/uL (134-434); RDW 17.6 % (11.6-15.6); WHITE BLOOD COUNT 4.4 K/mm3 (4.0-10.0)
[2023-07-29 07:41] LABS: POTASSIUM 4.1 mmol/L (3.5-5.1)
[2023-07-29 08:02] LABS: CALCIUM 9.3 mg/dL (8.5-10.1)
[2023-07-29 08:03] LABS: ALBUMIN 2.5 g/dl (3.4-5.0); BLOOD UREA NITROGEN 17.6 mg/dL (7-18); MAGNESIUM 2.2 mg/dL (1.8-2.4)
[2023-07-29 08:05] LABS: PHOSPHOROUS 2.8 mg/dL (2.5-4.9)
[2023-07-29 08:06] LABS: CREATININE 0.9 mg/dL (0.55-1.3)
[2023-07-29 08:07] LABS: BILIRUBIN,TOTAL 0.5 mg/dL (0.2-1); TOT PROT 6.2 g/dl (6.4-8.2)
[2023-07-29] MEDS: SACUBITRIL/VALSARTAN 97 MG-103 MG TABLET PO SCH ×2 (09:14→21:35)
[2023-07-29] MEDS: EMPAGLIFLOZIN (JARDIANCE) 10 MG TABLET PO SCH (09:14)
[2023-07-29] MEDS: CEFTRIAXONE 1 GM in DEXTROSE 5%-WATER - 50 ML IVPB SCH (09:14)
[2023-07-29] MEDS: FUROSEMIDE 40 MG/4 ML INJECTABLE VIAL IVPUSH SCH (09:14)
[2023-07-29] MEDS: CLOPIDOGREL BISULFATE 75 MG TABLET (FP) PO SCH (09:14)
[2023-07-29] MEDS: FAMOTIDINE 20 MG TABLET PO SCH ×2 (09:14→21:35)
[2023-07-29] MEDS: ENOXAPARIN NA (PORCINE) 40 MG/0.4 ML DISP.SYRIN SQ SCH (09:14)
[2023-07-29] MEDS: ATORVASTATIN CA 10 MG TABLET (FP) PO SCH (21:35)
[2023-07-30] MEDS: INSULIN ASPART SLIDING SCALE (NOVOLOG) 1 VIAL SQ SCH ×3 (06:25→17:19)
[2023-07-30] MEDS: FUROSEMIDE 40 MG TABLET (FP) PO SCH ×2 (06:28→14:26)
[2023-07-30] MEDS: INSULIN (LEVEMIR) 100 UNITS/ML UNITS SQ SCH (06:29)
[2023-07-30 09:34] VITALS: RESP 20
[2023-07-30] MEDS: FAMOTIDINE 20 MG TABLET PO SCH ×2 (09:35→21:18)
[2023-07-30] MEDS: CLOPIDOGREL BISULFATE 75 MG TABLET (FP) PO SCH (09:35)
[2023-07-30] MEDS: ENOXAPARIN NA (PORCINE) 40 MG/0.4 ML DISP.SYRIN SQ SCH (09:35)
[2023-07-30] MEDS: SACUBITRIL/VALSARTAN 97 MG-103 MG TABLET PO SCH ×2 (09:35→21:20)
[2023-07-30] MEDS: EMPAGLIFLOZIN (JARDIANCE) 10 MG TABLET PO SCH (09:35)
[2023-07-30] MEDS: CEFTRIAXONE 1 GM in DEXTROSE 5%-WATER - 50 ML IVPB SCH (09:36)
[2023-07-30] MEDS: ATORVASTATIN CA 10 MG TABLET (FP) PO SCH (21:18)
[2023-07-31] MEDS: FUROSEMIDE 40 MG TABLET (FP) PO SCH ×2 (06:07→13:05)
[2023-07-31] MEDS: INSULIN ASPART SLIDING SCALE (NOVOLOG) 1 VIAL SQ SCH ×2 (06:59→10:50)
[2023-07-31] MEDS: INSULIN (LEVEMIR) 100 UNITS/ML UNITS SQ SCH (07:00)
[2023-07-31] MEDS: FAMOTIDINE 20 MG TABLET PO SCH (09:25)
[2023-07-31] MEDS: ENOXAPARIN NA (PORCINE) 40 MG/0.4 ML DISP.SYRIN SQ SCH (09:26)
[2023-07-31] MEDS: EMPAGLIFLOZIN (JARDIANCE) 10 MG TABLET PO SCH (09:26)
[2023-07-31] MEDS: CEFTRIAXONE 1 GM in DEXTROSE 5%-WATER - 50 ML IVPB SCH ×2 (09:26→09:32)
[2023-07-31] MEDS: CLOPIDOGREL BISULFATE 75 MG TABLET (FP) PO SCH (09:26)
[2023-07-31] MEDS ORDERED: CEFUROXIME AXETIL 250 MG TABLET PO SCH (10:00)
[2023-07-31] MEDS ORDERED: SACUBITRIL/VALSARTAN 49 MG-51 MG TABLET PO SCH (10:00)
[2023-07-31 15:31] VITALS: BP 130/63; PULSE 68; TEMP 98
[2023-07-31] MEDS ORDERED: SACUBITRIL/VALSARTAN 97 MG-103 MG TABLET PO SCH (22:00)
== END 2023-07-31 16:00 | disposition home or self-care (01) | DRG 291 ==
LOC: JER 18:53 → JERBED 22:04 → J4W 07-27 02:18 → OBSVTOIN 07-27 18:21
PROVIDERS: ADMIT Internal Medicine; ATTEND Internal Medicine
DX: I11.0 Hypertensive heart disease with heart failure (principal); I50.23 Acute on chronic systolic (congestive) heart failure; N39.0 Urinary tract infection, site not specified; I24.89 Other forms of acute ischemic heart disease; E11.51 Type 2 diabetes mellitus with diabetic peripheral angiopathy without gangrene; I70.0 Atherosclerosis of aorta; I08.1 Rheumatic disorders of both mitral and tricuspid valves; E78.5 Hyperlipidemia, unspecified; I25.10 Atherosclerotic heart disease of native coronary artery without angina pectoris; B96.1 Klebsiella pneumoniae [K. pneumoniae] as the cause of diseases classified elsewhere; Z95.1 Presence of aortocoronary bypass graft; Z95.5 Presence of coronary angioplasty implant and graft
CPT/HCPCS: 0241U-QW; 36415; 70450-TC; 71045-TC-FY; 71250-TC; 72125-TC; 72170-TC-FY; 73090-TC-LT-FY; 73110-TC-LT-FY; 73130-TC-LT-FY; 80053; 81003; 82962; 83036; 83735; 83880; 84100; 84484; 85025; 85027; 85610; 85730; 86850; 86900; 86901; 87086; 87186; 93005; 93010; 93306-TC; 93971-TC; 97116-GP; 97161-GP; 99285-25; G0378

== ENCOUNTER 2023-11-28 12:57 | Observation (INO) | payer OTHER ==
[2023-11-28] MEDS: SODIUM CHLORIDE 0.9% 500 ML INFUS.BAG IV ONE (13:39)
[2023-11-28 14:32] LABS: BASO % 0.3 % (0-2.0); EOS % 3.2 % (0-4.5); HEMATOCRIT 36.8 % (32.4-45.2); HEMOGLOBIN 12.2 GM/dL (10.7-15.3); LYMPH % 35.4 % (8-40); MCH 28.7 pg (25.7-33.7); MCHC 33.1 g/dl (32.0-36.0); MEAN CELL VOLUME 86.6 fl (80-96); MONO % 11.8 % (3.8-10.2); NEUT % 49.3 % (42.8-82.8); PLATELET COUNT 177 10^3/uL (134-434); RBC 4.24 M/mm3 (3.60-5.2); RDW 17.4 % (11.6-15.6); WHITE BLOOD COUNT 6.1 K/mm3 (4.0-10.0)
[2023-11-28 14:42] LABS: INR 0.94 (0.83-1.09); PROTHROMBIN TIME (PATIENT) 10.8 SEC (9.7-13.0)
[2023-11-28 14:51] LABS: POTASSIUM 5.4 mmol/L (3.5-5.1)
[2023-11-28 14:54] LABS: CALCIUM 9.4 mg/dL (8.5-10.1)
[2023-11-28 14:55] LABS: ALBUMIN 3.4 g/dl (3.4-5.0); BLOOD UREA NITROGEN 46.1 mg/dL (7-18)
[2023-11-28 14:58] LABS: CREATININE 1.9 mg/dL (0.55-1.3)
[2023-11-28 14:59] LABS: BILIRUBIN,TOTAL 0.4 mg/dL (0.2-1); TOT PROT 7.5 g/dl (6.4-8.2)
[2023-11-28 15:03] LABS: N-TERMINAL BNP 2096.4 pg/ml (5-450)
[2023-11-28 17:20] LABS: CALCIUM 8.8 mg/dL (8.5-10.1); CHLORIDE 115 mmol/L (98-107); SODIUM 138 mmol/L (136-145)
[2023-11-28 17:21] LABS: BLOOD UREA NITROGEN 44.6 mg/dL (7-18); CO2 19 mmol/L (21-32); GLUCOSE,RANDOM 77 mg/dL (74-106)
[2023-11-28 17:25] LABS: CREATININE 1.7 mg/dL (0.55-1.3)
[2023-11-28 17:40] LABS: ANION GAP 4 mmol/L (4-13); POTASSIUM 6.4 mmol/L (3.5-5.1)
[2023-11-28] MEDS: INSULIN ASPART SLIDING SCALE (NOVOLOG) 1 VIAL SQ SCH (18:47)
[2023-11-28] MEDS ORDERED: ATORVASTATIN CA 10 MG TABLET (FP) ONE (22:05)
[2023-11-28] MEDS ORDERED: HEPARIN NA (PORCINE) 5,000 UNITS/ML 1ML VIAL ONE (22:06)
[2023-11-28] MEDS: ATORVASTATIN CA 10 MG TABLET (FP) PO SCH (22:14)
[2023-11-28] MEDS: HEPARIN NA (PORCINE) 5,000 UNITS/ML 1ML VIAL SQ SCH (22:15)
[2023-11-29 06:14] LABS: BASO % 0.5 % (0-2.0); EOS % 4.8 % (0-4.5); HEMATOCRIT 30.8 % (32.4-45.2); HEMOGLOBIN 10.2 GM/dL (10.7-15.3); LYMPH % 42.2 % (8-40); MCH 28.9 pg (25.7-33.7); MCHC 33.1 g/dl (32.0-36.0); MEAN CELL VOLUME 87.3 fl (80-96); MEAN PLT VOLUME 8.4 fl (7.5-11.1); MONO % 11.2 % (3.8-10.2); NEUT % 41.3 % (42.8-82.8); PLATELET COUNT 169 10^3/uL (134-434); RBC 3.52 M/mm3 (3.60-5.2); WHITE BLOOD COUNT 4.5 K/mm3 (4.0-10.0)
[2023-11-29 06:31] LABS: POTASSIUM 5.4 mmol/L (3.5-5.1)
[2023-11-29 06:34] LABS: BLOOD UREA NITROGEN 44.7 mg/dL (7-18); CALCIUM 8.8 mg/dL (8.5-10.1)
[2023-11-29 06:38] LABS: CREATININE 1.6 mg/dL (0.55-1.3)
[2023-11-29] MEDS ORDERED: metoPROLOL SUCCINATE 25 MG TAB.SR.24H (FP) PO ONE (10:17)
[2023-11-29] MEDS ORDERED: FAMOTIDINE 10 MG TABLET ONE (10:17)
[2023-11-29] MEDS ORDERED: CLOPIDOGREL BISULFATE 75 MG TABLET (FP) ONE (10:18)
[2023-11-29] MEDS ORDERED: HEPARIN NA (PORCINE) 5,000 UNITS/ML 1ML VIAL ONE ×2 (10:18→22:06)
[2023-11-29] MEDS: FAMOTIDINE 10 MG TABLET PO SCH (10:28)
[2023-11-29] MEDS: CLOPIDOGREL BISULFATE 75 MG TABLET (FP) PO SCH (10:28)
[2023-11-29] MEDS: metoPROLOL SUCCINATE 25 MG TAB.SR.24H (FP) PO SCH (10:28)
[2023-11-29] MEDS ORDERED: SODIUM ZIRCONIUM CYCLOSILICATE (LOKELMA) 10 GM PACKET ONE (12:04)
[2023-11-29] MEDS ORDERED: NICOTINE 14 MG/24 HOURS TOPICAL PATCH TD ONE (12:04)
[2023-11-29] MEDS: NICOTINE 14 MG/24 HOURS TOPICAL PATCH TD SCH (12:09)
[2023-11-29] MEDS: SODIUM ZIRCONIUM CYCLOSILICATE (LOKELMA) 5 GM PACKET PO SCH (12:09)
[2023-11-29] MEDS ORDERED: ACETAMINOPHEN 325 MG TABLET (FP) PO PRN (18:30)
[2023-11-29 19:55] LABS: URINE APPEARANCE CLEAR; URINE BILIRUBIN NEGATIVE (NEGATIVE); URINE COLOR YELLOW; URINE GLUCOSE (UA) 3+ (NEGATIVE); URINE KETONE NEGATIVE (NEGATIVE); URINE LEUK ESTERASE NEGATIVE (NEGATIVE); URINE NITRITE NEGATIVE (NEGATIVE); URINE PROTEIN NEGATIVE (NEGATIVE); URINE UROBILINOGEN 0.2 mg/dL (0.2-1.0)
[2023-11-29] MEDS ORDERED: ATORVASTATIN CA 10 MG TABLET (FP) ONE (22:05)
[2023-11-30] MEDS: metoPROLOL SUCCINATE 25 MG TAB.SR.24H (FP) PO ONE (01:35)
[2023-11-30 03:19] VITALS: BMI 21.5
[2023-11-30 07:21] LABS: HEMOGLOBIN 10.9 GM/dL (10.7-15.3); MCH 29.1 pg (25.7-33.7); MCHC 32.9 g/dl (32.0-36.0); MEAN CELL VOLUME 88.2 fl (80-96); MEAN PLT VOLUME 8.2 fl (7.5-11.1); PLATELET COUNT 169 10^3/uL (134-434); RBC 3.75 M/mm3 (3.60-5.2); RDW 16.7 % (11.6-15.6); WHITE BLOOD COUNT 4.4 K/mm3 (4.0-10.0)
[2023-11-30 07:38] LABS: POTASSIUM 4.6 mmol/L (3.5-5.1)
[2023-11-30 07:46] LABS: CALCIUM 9.3 mg/dL (8.5-10.1)
[2023-11-30 07:50] LABS: CREATININE 1.4 mg/dL (0.55-1.3)
[2023-11-30 07:51] LABS: BILIRUBIN,TOTAL 0.4 mg/dL (0.2-1); TOT PROT 6.6 g/dl (6.4-8.2)
[2023-11-30] MEDS ORDERED: SODIUM ZIRCONIUM CYCLOSILICATE (LOKELMA) 5 GM PACKET PO PRN (11:15)
[2023-11-30] MEDS ORDERED: MECLIZINE HCL 12.5 MG TABLET PO PRN (15:51)
[2023-11-30 18:56] VITALS: RESP 18
[2023-12-01 07:23] LABS: HEMATOCRIT 32.2 % (32.4-45.2); HEMOGLOBIN 10.5 GM/dL (10.7-15.3); MCH 28.8 pg (25.7-33.7); MCHC 32.6 g/dl (32.0-36.0); MEAN CELL VOLUME 88.4 fl (80-96); MEAN PLT VOLUME 8.3 fl (7.5-11.1); PLATELET COUNT 166 10^3/uL (134-434); RBC 3.64 M/mm3 (3.60-5.2); RDW 16.8 % (11.6-15.6); WHITE BLOOD COUNT 4.4 K/mm3 (4.0-10.0)
[2023-12-01 07:42] LABS: POTASSIUM 4.9 mmol/L (3.5-5.1)
[2023-12-01 07:46] LABS: CALCIUM 9.1 mg/dL (8.5-10.1)
[2023-12-01 07:49] LABS: CREATININE 1.3 mg/dL (0.55-1.3)
[2023-12-01 14:36] VITALS: PULSE 58
[2023-12-01] MEDS: SACUBITRIL/VALSARTAN 24 MG-26 MG TABLET PO ONE (17:16)
[2023-12-01] MEDS: hydrALAZINE HCL 25 MG TABLET (FP) PO ONE (18:27)
[2023-12-01 18:35] VITALS: TEMP 98.4
[2023-12-01 19:06] VITALS: BP 162/60
[2023-12-01] MEDS ORDERED: SACUBITRIL/VALSARTAN 24 MG-26 MG TABLET PO SCH (22:00)
== END 2023-12-01 19:22 | disposition home or self-care (01) ==
LOC: JER 12:57 → JERBED 15:59 → J4W 11-30 01:55
PROVIDERS: ADMIT Internal Medicine; ATTEND Internal Medicine
PROC: 3E013GC Introduction of Other Therapeutic Substance into Subcutaneous Tissue, Percutaneous Approach (ICD-10-PCS; principal; 2023-11-28)
PROC: 3E0337Z Introduction of Electrolytic and Water Balance Substance into Peripheral Vein, Percutaneous Approach (ICD-10-PCS; 2023-11-28)
DX: R55 Syncope and collapse (principal); I50.22 Chronic systolic (congestive) heart failure; N17.9 Acute kidney failure, unspecified; I11.0 Hypertensive heart disease with heart failure; E11.9 Type 2 diabetes mellitus without complications; E86.0 Dehydration; I25.10 Atherosclerotic heart disease of native coronary artery without angina pectoris; E87.5 Hyperkalemia; F17.200 Nicotine dependence, unspecified, uncomplicated; K21.9 Gastro-esophageal reflux disease without esophagitis; Z95.1 Presence of aortocoronary bypass graft; Z95.5 Presence of coronary angioplasty implant and graft; Z95.810 Presence of automatic (implantable) cardiac defibrillator
CPT/HCPCS: 36415; 70450-TC; 71045-TC-FY; 76775-TC; 80048; 80053; 81003; 82570; 82962; 83880; 84300; 84484; 84540; 85025; 85027; 85610; 85730; 86850; 86900; 86901; 93005; 93010; 96372; 97116-GP; 97161-GP; 99285-25; G0378; J1644

== ENCOUNTER 2024-01-08 10:05 | Inpatient (IN) | payer OTHER ==
[2024-01-08 10:26] VITALS: BMI 20.1
[2024-01-08 11:35] LABS: BASO % 0.4 % (0-2.0); HEMATOCRIT 32.8 % (32.4-45.2); HEMOGLOBIN 10.6 GM/dL (10.7-15.3); LYMPH % 24.7 % (8-40); MCH 29.4 pg (25.7-33.7); MCHC 32.5 g/dl (32.0-36.0); MEAN CELL VOLUME 90.6 fl (80-96); MEAN PLT VOLUME 9.4 fl (7.5-11.1); NEUT % 62.9 % (42.8-82.8); PLATELET COUNT 160 10^3/uL (134-434); RBC 3.62 M/mm3 (3.60-5.2); RDW 16.4 % (11.6-15.6)
[2024-01-08 11:55] LABS: POTASSIUM 5.1 mmol/L (3.5-5.1)
[2024-01-08 11:56] LABS: CALCIUM 9.4 mg/dL (8.5-10.1)
[2024-01-08 11:57] LABS: ALBUMIN 3.3 g/dl (3.4-5.0); BLOOD UREA NITROGEN 52.8 mg/dL (7-18)
[2024-01-08 12:00] LABS: BILIRUBIN,TOTAL 0.4 mg/dL (0.2-1); CREATININE 1.9 mg/dL (0.55-1.3)
[2024-01-08 12:05] LABS: N-TERMINAL BNP 30637.8 pg/ml (5-450)
[2024-01-08] MEDS: FUROSEMIDE 40 MG/4 ML INJECTABLE VIAL IVPUSH ONE ×3 (15:02→15:20)
[2024-01-08] MEDS: INSULIN ASPART SLIDING SCALE (NOVOLOG) 1 VIAL SQ SCH (15:29)
[2024-01-08] MEDS ORDERED: ATORVASTATIN CA 10 MG TABLET (FP) PO SCH (22:00)
[2024-01-08] MEDS ORDERED: FAMOTIDINE 20 MG TABLET ONE (22:26)
[2024-01-08] MEDS ORDERED: HEPARIN NA (PORCINE) 5,000 UNITS/ML 1ML VIAL ONE (22:26)
[2024-01-08] MEDS: HEPARIN NA (PORCINE) 5,000 UNITS/ML 1ML VIAL SQ SCH (22:31)
[2024-01-08] MEDS: FAMOTIDINE 20 MG TABLET PO SCH (22:31)
[2024-01-09 08:01] LABS: BASO % 0.4 % (0-2.0); EOS % 1.8 % (0-4.5); HEMATOCRIT 30.8 % (32.4-45.2); LYMPH % 33.3 % (8-40); MCH 29.6 pg (25.7-33.7); MCHC 32.6 g/dl (32.0-36.0); MEAN PLT VOLUME 9.5 fl (7.5-11.1); MONO % 13.5 % (3.8-10.2); PLATELET COUNT 143 10^3/uL (134-434); RBC 3.38 M/mm3 (3.60-5.2); RDW 15.9 % (11.6-15.6); WHITE BLOOD COUNT 5.8 K/mm3 (4.0-10.0)
[2024-01-09 08:20] LABS: POTASSIUM 4.7 mmol/L (3.5-5.1)
[2024-01-09 08:22] LABS: CALCIUM 9.1 mg/dL (8.5-10.1)
[2024-01-09 08:24] LABS: BLOOD UREA NITROGEN 54.6 mg/dL (7-18)
[2024-01-09 08:28] LABS: CREATININE 1.8 mg/dL (0.55-1.3)
[2024-01-09] MEDS ORDERED: HEPARIN NA (PORCINE) 5,000 UNITS/ML 1ML VIAL ONE (12:37)
[2024-01-09] MEDS ORDERED: FAMOTIDINE 20 MG TABLET ONE (12:37)
[2024-01-09] MEDS ORDERED: CLOPIDOGREL BISULFATE 75 MG TABLET (FP) ONE (12:37)
[2024-01-09] MEDS ORDERED: FUROSEMIDE 40 MG/4 ML INJECTABLE VIAL ONE (12:38)
[2024-01-09] MEDS: FUROSEMIDE 40 MG/4 ML INJECTABLE VIAL IVPUSH SCH (13:00)
[2024-01-09] MEDS: CLOPIDOGREL BISULFATE 75 MG TABLET (FP) PO SCH (13:00)
[2024-01-09] MEDS: SACUBITRIL/VALSARTAN 49 MG-51 MG TABLET PO SCH (23:22)
[2024-01-10] MEDS: EMPAGLIFLOZIN (JARDIANCE) 10 MG TABLET PO SCH (06:32)
[2024-01-10 08:16] LABS: BASO % 0.2 % (0-2.0); EOS % 0.4 % (0-4.5); HEMATOCRIT 31.1 % (32.4-45.2); HEMOGLOBIN 10.1 GM/dL (10.7-15.3); MCH 29.3 pg (25.7-33.7); MCHC 32.5 g/dl (32.0-36.0); MEAN CELL VOLUME 90.3 fl (80-96); MEAN PLT VOLUME 9.9 fl (7.5-11.1); MONO % 11.5 % (3.8-10.2); NEUT % 61.9 % (42.8-82.8); PLATELET COUNT 142 10^3/uL (134-434); RBC 3.45 M/mm3 (3.60-5.2); RDW 16.3 % (11.6-15.6); WHITE BLOOD COUNT 6.2 K/mm3 (4.0-10.0)
[2024-01-10 08:35] LABS: POTASSIUM 4.7 mmol/L (3.5-5.1)
[2024-01-10 08:42] LABS: BLOOD UREA NITROGEN 56.5 mg/dL (7-18); CALCIUM 8.9 mg/dL (8.5-10.1); MAGNESIUM 2.2 mg/dL (1.8-2.4)
[2024-01-10 08:44] LABS: ALBUMIN 3.2 g/dl (3.4-5.0)
[2024-01-10 08:45] LABS: CREATININE 1.8 mg/dL (0.55-1.3); PHOSPHOROUS 4.3 mg/dL (2.5-4.9); TOT PROT 6.7 g/dl (6.4-8.2)
[2024-01-10 08:47] LABS: BILIRUBIN,TOTAL 0.8 mg/dL (0.2-1)
[2024-01-10] MEDS ORDERED: ONDANSETRON 4 MG/2 ML VIAL IVPUSH PRN (13:54)
[2024-01-11 06:18] VITALS: RESP 17
[2024-01-11 07:38] LABS: BASO % 0.4 % (0-2.0); EOS % 2.8 % (0-4.5); HEMATOCRIT 30.5 % (32.4-45.2); HEMOGLOBIN 10.2 GM/dL (10.7-15.3); LYMPH % 35.8 % (8-40); MCH 30.3 pg (25.7-33.7); MCHC 33.6 g/dl (32.0-36.0); MEAN CELL VOLUME 90.3 fl (80-96); MEAN PLT VOLUME 9.4 fl (7.5-11.1); MONO % 12.2 % (3.8-10.2); NEUT % 48.8 % (42.8-82.8); PLATELET COUNT 144 10^3/uL (134-434); RBC 3.37 M/mm3 (3.60-5.2); WHITE BLOOD COUNT 5.8 K/mm3 (4.0-10.0)
[2024-01-11 07:41] LABS: POTASSIUM 4.3 mmol/L (3.5-5.1)
[2024-01-11 07:48] LABS: ALBUMIN 2.9 g/dl (3.4-5.0); BLOOD UREA NITROGEN 58.4 mg/dL (7-18); CALCIUM 8.5 mg/dL (8.5-10.1)
[2024-01-11 07:51] LABS: CREATININE 1.7 mg/dL (0.55-1.3); PHOSPHOROUS 3.2 mg/dL (2.5-4.9)
[2024-01-11 07:52] LABS: MAGNESIUM 2.3 mg/dL (1.8-2.4)
[2024-01-11 07:53] LABS: BILIRUBIN,TOTAL 0.7 mg/dL (0.2-1); TOT PROT 6.2 g/dl (6.4-8.2)
[2024-01-11 08:00] VITALS: BP 127/81; PULSE 100; TEMP 98.6
[2024-01-11 19:13] LABS: N-TERMINAL BNP 19227.3 pg/ml (5-450)
== END 2024-01-11 15:55 | disposition home or self-care (01) | DRG 291 ==
LOC: JER 10:05 → JERBED 13:05 → J4W 01-09 14:37
PROVIDERS: ADMIT Internal Medicine; ATTEND Internal Medicine
DX: I13.0 Hypertensive heart and chronic kidney disease with heart failure and stage 1 through stage 4 chronic kidney disease, or unspecified chronic kidney disease (principal); I40.0 Infective myocarditis; I50.23 Acute on chronic systolic (congestive) heart failure; N17.9 Acute kidney failure, unspecified; I47.20 Ventricular tachycardia, unspecified; J98.11 Atelectasis; E11.22 Type 2 diabetes mellitus with diabetic chronic kidney disease; E11.51 Type 2 diabetes mellitus with diabetic peripheral angiopathy without gangrene; N18.9 Chronic kidney disease, unspecified; I25.10 Atherosclerotic heart disease of native coronary artery without angina pectoris; E78.5 Hyperlipidemia, unspecified; E78.00 Pure hypercholesterolemia, unspecified; R06.09 Other forms of dyspnea; Z95.5 Presence of coronary angioplasty implant and graft; Z95.1 Presence of aortocoronary bypass graft
CPT/HCPCS: 0241U-QW; 36415; 71045-TC-FY; 80048; 80053; 82962; 83735; 83880; 84100; 84484; 85025; 93005; 93010; 97116-GP; 97161-GP; 99285-25; J1644